=== PATIENT | male | born 1970 | race Caucasian/White ===

== ENCOUNTER 2022-06-04 00:20 | Emergency (ER) | payer OTHER ==
[2022-06-04] MEDS ORDERED: KETOROLAC TROMETHAMINE 30 MG/1 ML VIAL IVPUSH ONE (00:23)
[2022-06-04] MEDS ORDERED: SODIUM CHLORIDE 1,000 ML ONE (00:23)
[2022-06-04 00:29] VITALS: BMI 24.3
[2022-06-04 02:38] LABS: BASO % 0.8 % (0-2.0); EOS % 2.4 % (0-4.5); HEMATOCRIT 38.8 % (35.4-49); HEMOGLOBIN 12.3 GM/dL (11.7-16.9); LYMPH % 35.5 % (8-40); MCHC 31.7 g/dl (32.0-35.9); MEAN CELL VOLUME 60.7 fl (80-96); MEAN PLT VOLUME 9.6 fl (7.5-11.1); MONO % 9.7 % (3.8-10.2); NEUT % 51.6 % (42.8-82.8); PLATELET COUNT 309 10^3/uL (134-434); RDW 17.6 % (11.9-15.9); WHITE BLOOD COUNT 7.8 K/mm3 (4.0-10.0)
[2022-06-04 02:43] LABS: MCH 19.2 pg (25.7-33.7)
[2022-06-04 02:45] LABS: PH,URINE 7.5 (5.0-8.0); URINE APPEARANCE CLEAR; URINE BILIRUBIN NEGATIVE (NEGATIVE); URINE COLOR YELLOW; URINE GLUCOSE (UA) NEGATIVE (NEGATIVE); URINE KETONE NEGATIVE (NEGATIVE); URINE LEUK ESTERASE NEGATIVE (NEGATIVE); URINE NITRITE NEGATIVE (NEGATIVE); URINE PROTEIN NEGATIVE (NEGATIVE); URINE UROBILINOGEN 0.2 mg/dL (0.2-1.0)
[2022-06-04 02:56] VITALS: BP 131/77; PULSE 60; RESP 17; TEMP 98.7
[2022-06-04 02:58] LABS: CALCIUM 9.6 mg/dL (8.5-10.1)
[2022-06-04 02:59] LABS: ALBUMIN 4.1 g/dl (3.4-5.0); BLOOD UREA NITROGEN 16.2 mg/dL (7-18)
[2022-06-04 03:02] LABS: CREATININE 1.2 mg/dL (0.55-1.3)
[2022-06-04 03:04] LABS: BILIRUBIN,TOTAL 0.4 mg/dL (0.2-1); TOT PROT 7.5 g/dl (6.4-8.2)
[2022-06-04 04:09] LABS: ANISOCYTOSIS 2+; MACROCYTOSIS 0; OVALOCYTE 2+; TEAR DROP CELLS 1+
== END 2022-06-04 03:16 | disposition home or self-care (01) ==
LOC: FER 00:20
PROC: 3E0333Z Introduction of Anti-inflammatory into Peripheral Vein, Percutaneous Approach (ICD-10-PCS; principal; 2022-06-04)
DX: N20.0 Calculus of kidney (principal)
CPT/HCPCS: 36415; 74176-TC; 80053; 81003; 85025; 99284-25

== ENCOUNTER 2023-11-28 12:36 | Emergency (ER) | payer BC, OTHER ==
[2023-11-28 12:57] VITALS: BP 138/98; PULSE 101; RESP 18; TEMP 98.8; BMI 25.7
== END 2023-11-28 14:27 | disposition home or self-care (01) ==
LOC: FER 12:36
DX: R07.89 Other chest pain (principal)
CPT/HCPCS: 93005; 99283-25